=== PATIENT | female | born 2000 | race Caucasian/White ===

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

== ENCOUNTER 2018-03-04 11:14 | Emergency (ER) | payer OTHER ==
[2018-03-04 11:21] VITALS: BP 126/66
--- NOTE | 2018-03-04 11:31 | ER Document Report ---
ED Eye Complaint - General Chief Complaint: Eye Problem Stated Complaint: EYE ISSUE Time Seen by Provider: 03/04/18 11:25 Mode of Arrival: Ambulatory Information source: Patient Notes: History of Present Illness Time:[ ] Chief Complaint: [eye complaint ] [ ] History obtained from [patient] 18 years old female presents today with right eye redness going on for the last few days. No fever chills or other constitutional symptoms. Symptoms began: [As above gradual ] Onset: [ Gradual] Timing: [ Continuous] Quality: [Sharp ] Intensity: [Mild ] Location: [Right eye ] Radiation: [none] Migration: [none] Aggravating factors: [none] Relieving factors: [none] Review of Systems: All other systems negative as reviewed. CONSTITUTIONAL No Fever. EYES As above ENT No sore throat CARDIOVASCULAR No chest pain. RESPIRATORY No SOB. GI No abdominal pain, no vomiting, no diarrhea. GENITOURINARY No dysuria. SKIN No rash. NEUROLOGIC No headache. MUSCULOSKELETAL No back pain. Physical Exam CONSTITUTIONAL Vital signs reviewed, Patient has normal respiratory rate, Well appearing, Patient appears comfortable, normal stature. HEAD Atraumatic, Normocephalic. EYES [ ][Pupils are ~ 3 mm bilaterally.] [Pupils are equal, round, and reactive to light. ]Extraocular movements are normal bilaterally. [] Right eye redness. [ No] eye lesions. [No] eye discharge. [No] subconjunctival hemorrhage. [No] icterus. [Normal visual mai. ] Eyelids everted, [no] lesions , [no] foreign material noted. Visual acuity charted by RN. ENT Ears normal to inspection, Nose examination normal, Mouth examination normal. NECK No jugular venous distention. RESPIRATORY CHEST Breath sounds normal, No respiratory distress. CARDIOVASCULAR RRR, No murmurs, Normal S1 S2, No rub, No gallop. ABDOMEN Abdomen is nontender, No masses, Bowel sounds normal, No distension, No peritoneal signs. BACK Inspection normal. UPPER EXTREMITY Inspection normal. LOWER EXTREMITY Inspection normal. NEURO No facial droop, speech normal, motor function normal. SKIN Skin is warm, dry, normal color. PSYCHIATRIC Normal affect. TRAVEL OUTSIDE OF THE [place] IN LAST 30 DAYS: No - HPI Notes: Dictated - Related Data Allergies/Adverse Reactions: No Known Allergies Allergy (Verified 03/04/18 11:25) Past Medical History - Social History Smoking Status: Never Smoker Frequency of alcohol use: None Drug Abuse: None Lives with: Family Family History: Reviewed & Not Pertinent Patient has suicidal ideation: No Patient has homicidal ideation: No Renal/ Medical History: Denies: Hx Peritoneal Dialysis Past Surgical History: Reports: Hx Tonsillectomy - Immunizations Immunizations up to date: Yes Hx Diphtheria, Pertussis, Tetanus Vaccination: Yes Review of Systems - Review of Systems Notes: Dictated Physical Exam - Vital signs Vitals: Temp Pulse Resp BP Pulse Ox 98.1 F 76 14 126/66 H 100 03/04/18 11:18 03/04/18 11:18 03/04/18 11:18 03/04/18 11:18 03/04/18 11:18 - Notes Notes: Dictated Course - Vital Signs Vital signs: Temp Pulse Resp BP Pulse Ox 98.1 F 76 14 126/66 H 100 03/04/18 11:18 03/04/18 11:18 03/04/18 11:18 03/04/18 11:18 03/04/18 11:18 Discharge - Discharge Clinical Impression: Conjunctivitis Qualifiers: Conjunctivitis type: acute Acute conjunctivitis type: unspecified Laterality: right Qualified Code(s): H10.31 - Unspecified acute conjunctivitis, right eye Condition: Fair Disposition: HOME, SELF-CARE Instructions: Conjunctivitis ([facility]), Eyedrop Use ([facility]) Prescriptions: Ketorolac Tromethamine 0.45% [Acuvail 0.45% Oph Soln 0.4 ml/Dropperette] 1 drop OD BID #1 droperette Tobramycin Sulfate/Dexameth [Tobradex Oph Drops 2.5 Ml Bottle] 2 drop OD BID #1 bottle Referrals: FROYLAN GARCIA NP [Primary Care Provider] - Follow up as needed
== END 2018-03-04 11:35 | disposition home or self-care (01) ==
LOC: ER 11:14
DX: H10.31 Unspecified acute conjunctivitis, right eye (principal)
CPT/HCPCS: 99283